=== PATIENT | female | born 1970 | race Caucasian/White ===

== ENCOUNTER 2024-09-17 19:15 | Emergency (ER) | payer MEDICAID ==
[~2024-09-17] VITALS: Ht 170.2 cm; Wt 63.0 kg
[2024-09-17 21:09] LABS: BASOPHILS # (AUTO) 0.06 K/uL (0.00-0.20); EOSINOPHILS # (AUTO) 0.22 K/uL (0.00-0.70); EOSINOPHILS % (AUTO) 3.7 % (0.0-8.0); IMMATURE GRANULOCYTE ABSOLUTE 0.07 K/uL (0-1); LYMPHOCYTES # (AUTO) 2.1 K/uL (1.0-4.8); MEAN CORPUSCULAR HEMOGLOBIN 30.7 pg (27.0-33.0); MEAN CORPUSCULAR HGB CONC 31.7 g/dL (32.0-36.0); MONOCYTES # (AUTO) 0.6 K/uL (0.1-1.0); MONOCYTES % (AUTO) 9.8 % (3.0-13.0); NEUTROPHILS % (AUTO) 49.3 % (40.0-77.0); PLATELET COUNT (AUTO) 373 K/uL (130-400); RED BLOOD CELL COUNT(AUTO) 3.61 MIL/uL (4.00-5.50); RED CELL DISTRIBUTION WIDTH 12.8 % (11.0-15.5)
--- NOTE | 2024-09-17 21:23 | NUR ---
CALLED FOR PT IN LOBBY TO MOVE TO FT AREA; NO RESPONSE. PT NOT FOUND IN LOBBY.
[2024-09-17 21:28] LABS: CARBON DIOXIDE 31 mmol/L (21-32); CHLORIDE 104 mmol/L (101-111); CREATININE 0.8 mg/dL (0.5-1.0); GLOMERULAR FILTR. RATE CALC 88 mL/min (>90); GLUCOSE,RANDOM 96 mg/dL (70-105); POTASSIUM 3.7 mmol/L (3.5-5.1); SODIUM SERUM 140 mmol/L (136-145); UREA NITROGEN, BLOOD 19 mg/dL (7-18)
[2024-09-17 21:32] LABS: ALCOHOL, BLOOD < 3 mg/dL (0-10); CREATINE KINASE, TOTAL 172 U/L (21-232); SALICYLATE 4.5 mg/dL (2.8-20.0)
[2024-09-17 21:33] LABS: ACETAMINOPHEN < 1 mcg/mL (10-30)
[2024-09-17 21:47] LABS: AMPHET/METH SCREEN,URINE NEGATIVE (NEGATIVE); BARBITURATE SCREEN, URINE NEGATIVE (NEGATIVE); BENZODIAZEPINES SCREEN,URINE NEGATIVE (NEGATIVE); CANNABINOID SCREEN,URINE NEGATIVE (NEGATIVE); COCAINE SCREEN,URINE NEGATIVE (NEGATIVE); OPIATE SCREEN,URINE NEGATIVE (NEGATIVE); PHENCYCLIDINE SCREEN,URINE NEGATIVE (NEGATIVE)
--- NOTE | 2024-09-17 22:32 | NUR ---
[facility] [place] crisis line called for screener to evaluate patient
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
--- NOTE | 2024-09-18 00:05 | NUR ---
MYCHAL LEONARD SCREENER HERE TO EVALUATE THE PATIENT
[2024-09-18 00:19] VITALS: BP 116/74; PULSE 88; RESP 16; TEMP 99; O2SAT 97
[2024-09-18] MEDS: ZIPRASIDONE MESYLATE 20 MG/VIAL IM ONE ×2 (01:16→01:30)
--- NOTE | 2024-09-18 01:40 | NUR ---
PATIENT WALKED OUT OF [facility], [facility] CALLED AND INFORMED
--- NOTE | 2024-09-18 01:55 | NUR ---
[facility] OFFICER ARRIVED, PATIENT WAS FOUND AT [facility] LET PATIENT IN AND ASKED OFFICERS THERE TO SIGN SECTION.
--- NOTE | 2024-09-18 02:41 | NUR ---
REPORT GIVEN TO NURSING STAFF AT [facility]
== END 2024-09-18 02:24 | disposition left against medical advice (07) ==
LOC: EDH 19:15
DX: R50.9 Fever, unspecified (principal); F41.9 Anxiety disorder, unspecified; F31.9 Bipolar disorder, unspecified
CPT/HCPCS: 99283; 82550; 80048; 80305; 85025; 36415; 96372; G0481; J3486